=== PATIENT | male | born 1995 | race African-American/Black ===

== ENCOUNTER 2019-10-06 21:56 | Emergency (ER) | payer OTHER ==
[~2019-10-06] VITALS: Ht 190.5 cm; Wt 81.8 kg
[2019-10-06] MEDS ORDERED: NS 1,000 ML IV ONE ×2 (22:30)
[2019-10-06 22:36] LABS: BASO % 0.2 % (0.0-1.0); EOS % 0.2 % (0.0-3.0); HEMATOCRIT 45.7 % (42.0-52.0); HEMOGLOBIN 15.8 g/dl (13.5-17.5); LYMPH # 1.4 10^3/uL (1.5-5.0); LYMPH % 16.8 % (24.0-44.0); MEAN CORPUSCULAR HEMOGLOBIN 30.7 pg (27.0-33.0); MEAN CORPUSCULAR HGB CONC 34.6 g/dl (32.0-36.5); MEAN CORPUSCULAR VOLUME 88.7 fl (80.0-96.0); MONO # 0.5 10^3/uL (0.0-0.8); MONO % 5.5 % (0.0-5.0); NEUTROPHILS # 6.3 10^3/uL (1.5-8.5); NEUTROPHILS % 76.9 % (36.0-66.0); PLATELET COUNT, AUTOMATED 283 10^3/uL (150-450); RED BLOOD COUNT 5.15 10^6/uL (4.30-6.10); WHITE BLOOD COUNT 8.2 10^3/uL (4.0-10.0)
[2019-10-06 23:01] LABS: ALBUMIN 4.8 GM/DL (3.2-5.2); ALT/SGPT 194 U/L (12-78); BILIRUBIN,DIRECT 0.3 MG/DL (0.0-0.2); BILIRUBIN,TOTAL 1.5 MG/DL (0.2-1.0); LIPASE 50 U/L (73-393); TOTAL PROTEIN 9.2 GM/DL (6.4-8.2)
[2019-10-06] MEDS ORDERED: ONDANSETRON 4MG/2ML VIAL IV ONE (23:30)
--- NOTE | 2019-10-06 23:55 | REPVR ---
PROCEDURE INFORMATION: Exam: US Abdomen Limited, Right Upper Quadrant Exam date and time: 10/06/2019 11:43 PM Age: 23 years old Clinical indication: Abnormal findings; Abnormal lab test; Elevated liver enzymes; Nausea and vomiting; Additional info: Elev. Lfts, bilirubin, chills TECHNIQUE: Imaging protocol: Real-time ultrasound of the abdomen with image documentation. Examination was focused on the right upper quadrant. COMPARISON: No relevant prior studies available. FINDINGS: Liver: Liver is unremarkable. Gallbladder: Gallbladder is unremarkable. Gallbladder wall measures 2 mm in thickness. No gallstones. Common bile duct: CBD measures 4.5 mm in diameter. Pancreas: Pancreas is unremarkable. Right kidney: Right kidney measures 11.3 cm in length. No right hydronephrosis. Normal right kidney. Intraperitoneal space: No free fluid. IMPRESSION: Unremarkable gallbladder. Electronically signed by: Susi iFgueroa On 10/06/2019 23:55:18 PM
[2019-10-07 00:06] LABS: FREE THYROXINE INDEX 4.6 % (1.4-3.8); T UPTAKE 34 % (33-40); THYROXINE (T4) 13.6 UG/DL (4.5-12.0)
[2019-10-07] MEDS ORDERED: METAL LOCK LOOP XX ONE (00:06)
--- NOTE | 2019-10-07 00:44 | REPVR ---
PROCEDURE INFORMATION: Exam: CT Head Without Contrast Exam date and time: 10/07/2019 12:32 AM Age: 23 years old Clinical indication: Pain; Headache; Additional info: Nausea vomiting, elev thyroid levels, pituitary tumor? TECHNIQUE: Imaging protocol: Computed tomography of the head without contrast. Radiation optimization: All CT scans at this facility use at least one of these dose optimization techniques: automated exposure control; mA and/or kV adjustment per patient size (includes targeted exams where dose is matched to clinical indication); or iterative reconstruction. COMPARISON: No relevant prior studies available. FINDINGS: Brain: Normal. No hemorrhage. No significant white matter disease. No edema. Cortical jones-white matter differentiation is preserved. Pituitary gland is grossly unremarkable on CT. Ventricles: Normal. No ventriculomegaly. Bones/joints: Unremarkable. No acute fracture. Sinuses: Visualized sinuses are unremarkable. No fluid levels. Mastoid air cells: Visualized mastoid air cells are well aerated. Soft tissues: Unremarkable. IMPRESSION: 1. No acute intracranial abnormality. 2. Pituitary gland is grossly unremarkable on CT. Consider routine follow-up MRI if pituitary lesion is clinically suspected. Electronically signed by: Susi Figueroa On 10/07/2019 00:44:14 AM
[2019-10-07] MEDS ORDERED: ONDA4TAB6 PO (01:34)
[2019-10-07 01:46] VITALS: BP 153/71
[2019-10-07 10:46] LABS: HEPATITIS B SURFACE ANTIGEN NEGATIVE (NEGATIVE)
[2019-10-07 11:13] LABS: HEPATITIS C VIRUS ABY INDEX 0.1 INDEX (<0.8)
[2019-10-07 11:14] LABS: HEPATITIS B CORE ANTIBODY IGM NEGATIVE (NEGATIVE)
[2019-10-07 11:16] LABS: HEPATITIS A ANTIBODY IGM NEGATIVE (NEGATIVE)
== END 2019-10-07 01:50 | disposition home or self-care (01) ==
LOC: M ED 21:56
DX: R94.6 Abnormal results of thyroid function studies (principal); R11.2 Nausea with vomiting, unspecified; F90.9 Attention-deficit hyperactivity disorder, unspecified type; Z88.6 Allergy status to analgesic agent
CPT/HCPCS: 36415; 70450; 76705; 80047; 80076; 81001; 83690; 84436; 84443; 84479; 85025; 86705; 86709; 86803; 87340; 96360; 96361; 96375; 99284; J2405

== ENCOUNTER → 2019-11-08 | Outpatient (REF) | payer OTHER ==
[~2019-11-08] MED LIST: ONDA4TAB6 PO
[2019-11-08 18:50] LABS: CHLAMYDIA DNA AMPLIFICATION POSITIVE (NEGATIVE); GC DNA AMPLIFICATION NEGATIVE (NEGATIVE)
== END ==
LOC: M SFHCLERA 12:50
PROVIDERS: ATTEND Nurse Practitioner Family
DX: R36.9 Urethral discharge, unspecified (principal)